=== PATIENT | female | born 1950 | race Caucasian/White ===

== ENCOUNTER 2017-01-02 12:16 | Inpatient (IN) | payer OTHER ==
[~2017-01-02] VITALS: Ht 165.1 cm; Wt 80.0 kg
[2017-01-02 14:08] LABS: CHLORIDE 95 mEq/L (99-109); POTASSIUM 4.1 mEq/L (3.7-5.4); SODIUM 132 mEq/L (136-147)
[2017-01-02 14:10] LABS: GLUCOSE 108 mg/dL (70-99)
[2017-01-02 14:11] LABS: ANION GAP 11 MEQ/L (2-14)
[2017-01-02 14:12] LABS: TOTAL BILIRUBIN 0.9 mg/dL (0.0-1.0)
[2017-01-02 14:13] LABS: TROP-I INTERPRETATION NEGATIVE; TROPONIN-I 0.01 ng/mL (0.0-0.30)
[2017-01-02 14:14] LABS: ALKALINE PHOSPHATASE 156 IU/L (3-129); GFR ESTIMATE (CALCULATED) > 59 mL/min/
[2017-01-02 14:15] LABS: UREA NITROGEN (BUN) 31 mg/dL (9-23)
[2017-01-02 14:26] LABS: BASE EXCESS 0.5 mEq/L (-3 to +3); BICARBONATE 31.4 mEq/L (22-26); CARBOXY HGB 2.2 % (0-5); METHEMOGLOBIN 0.9 % (0-1.5); PCO2 84 mm Hg (35-45); PO2 70 mm Hg (80-100)
[2017-01-02 14:27] LABS: COMMENTS - BLOOD GASES A+C+; DEVICE NC; O2 FLOW 4 L/MIN; SITE RR; TOTAL RESP RATE 16 resp/min; pH 7.18 (7.35-7.45)
[2017-01-02 14:28] LABS: HEMATOCRIT 41.6 % (36.0-46.0); MCH 28.3 PG (29.0-34.0); MCHC 31.3 G/DL (30.0-36.0); MCV 90.4 FL (83-99); MEAN PLAT.VOLUME 9.9 uM^3 (9.5-12.4); NRBC (%) 0.2 /100 WBC (0-0); PLATELET COUNT 225 K/uL (156-360); RBC DIS.WIDTH-CV 12.9 % (11.8-14.6); RBC DIS.WIDTH-SD 42.9 % (39-53)
[2017-01-02 15:15] LABS: ABS NEUTROPHIL COUNT 11.4; BAND NEUTROPHILS 22.4 % (0-8.0); EOSINOPHIL ABS CT 0; INSTRUMENT ABS NEUTROPHIL CT 11.2 K/uL; LYMPHOCYTES 5.2 % (15.0-45.0); METAMYELOCYTES 2.6 %; MYELOCYTES 0.9 %; SEG.NEUTROPHILS 65.5 % (46.0-76.0)
[2017-01-02 18:08] LABS: BASE EXCESS 0 mEq/L (-3 to +3); BICARBONATE 26.8 mEq/L (22-26); CARBOXY HGB 1.9 % (0-5); METHEMOGLOBIN 0.7 % (0-1.5); PO2 74 mm Hg (80-100)
[2017-01-02 18:09] LABS: COMMENTS - BLOOD GASES A+C+; DEVICE VENT; FI02 50 %; MECHANICAL RATE 16 resp/min; MODE A/C; PCO2 52 mm Hg (35-45); PEEP 5 CM/H20; SITE LR; TIDAL VOLUME 500 ML; TOTAL RESP RATE 16 resp/min; pH 7.32 (7.35-7.45)
[2017-01-02 18:13] LABS: ADD MIUA? YES; BILIRUBIN NEGATIVE; BLOOD MODERATE; COLOR YELLOW ((YELLOW)); GLUCOSE (STRIP) NEGATIVE; KETONES NEGATIVE; LEUKOCYTES MODERATE; NITRITE NEGATIVE; PROTEIN (STRIP) 100; SPECIFIC GRAVITY 1.015 (1.000-1.030)
[2017-01-02 18:23] LABS: BACTERIA 1+ /HPF; EPITHELIAL CELLS 1+ /HPF; HYALINE CASTS 15-20 /LPF; MUCUS TRACE /LPF; RED BLOOD CELLS 0-5 /HPF (0-5); UCUL ADDED? YES; WHITE BLOOD CELLS 20-30 /HPF (0-5)
[2017-01-02 20:00] VITALS: BP 121/69
[2017-01-02 21:00] VITALS: BP 102/63
[2017-01-02 21:19] VITALS: BP 101/60
[2017-01-02 22:00] VITALS: BP 91/53
[2017-01-02 22:25] LABS: METH RESISTANT S AUREUS PCR NEGATIVE (NEGATIVE)
[2017-01-02 22:41] LABS: PROBE CHECK PASS; SPECIMEN PROCESSING CONTROL PASS
[2017-01-02 23:00] VITALS: BP 90/56
[2017-01-03] VITALS (18 sets, daily range): BP systolic 83–140; BP diastolic 50–76
[2017-01-03 06:31] LABS: ANION GAP 9 MEQ/L (2-14); CHLORIDE 101 MEQ/L (99-109); GFR ESTIMATE (CALCULATED) > 59 mL/min/; POTASSIUM 3.5 MEQ/L (3.7-5.4); SAMPLE HEMOLYSIS CHECK 0; SAMPLE ICTERIC CHECK 0; SAMPLE LIPEMIA CHECK 0; SODIUM 137 MEQ/L (136-147); UREA NITROGEN (BUN) 30 mg/dL (9-23)
[2017-01-03 06:36] LABS: GLUCOSE 77 mg/dL (70-99)
[2017-01-03 14:40] LABS: MAGNESIUM 2.3 mg/dl (1.3-2.7)
[2017-01-04] VITALS (24 sets, daily range): BP systolic 90–177; BP diastolic 64–104
[2017-01-04 08:28] LABS: HEMATOCRIT 32.4 % (36.0-46.0); MCH 28.8 PG (29.0-34.0); MCHC 32.4 G/DL (30.0-36.0); MEAN PLAT.VOLUME 9.7 uM^3 (9.5-12.4); NRBC (%) 0.2 /100 WBC (0-0); PLATELET COUNT 195 K/uL (156-360); RBC DIS.WIDTH-CV 13.5 % (11.8-14.6); RBC DIS.WIDTH-SD 44.2 % (39-53); WHITE BLOOD COUNT 8.5 K/uL (4.1-10.2)
[2017-01-04 08:48] LABS: ALKALINE PHOSPHATASE 271 IU/L (3-129); ANION GAP 6 MEQ/L (2-14); CHLORIDE 104 MEQ/L (99-109); GFR ESTIMATE (CALCULATED) > 59 mL/min/; MAGNESIUM 2.1 mg/dl (1.3-2.7); POTASSIUM 3.5 MEQ/L (3.7-5.4); SAMPLE HEMOLYSIS CHECK 0; SAMPLE ICTERIC CHECK 0; SAMPLE LIPEMIA CHECK 0; SODIUM 141 MEQ/L (136-147); UREA NITROGEN (BUN) 12 mg/dL (9-23)
[2017-01-04 08:49] LABS: GLUCOSE 154 mg/dL (70-99)
[2017-01-04 09:08] LABS: ATYPICAL LYMPHOCYTE 2.6 %; EOSINOPHIL ABS CT 0.1; EOSINOPHILS 1.7 % (0-5.0); HEMATOLOGY COMMENT 1 SN; INSTRUMENT ABS NEUTROPHIL CT 5.6 K/uL; LYMPHOCYTES 11.3 % (15.0-45.0); METAMYELOCYTES 0.9 %; MYELOCYTES 0.9 %; PLAT.SUFFICIENCY ADEQUATE; SEG.NEUTROPHILS 80.9 % (46.0-76.0)
[2017-01-04 09:14] LABS: BAND NEUTROPHILS 0.9 % (0-8.0); RED BLOOD COUNT 3.64 M/uL (3.80-5.20)
[2017-01-05] VITALS (24 sets, daily range): BP systolic 106–195; BP diastolic 75–121
[2017-01-05 07:52] LABS: HEMATOCRIT 32.2 % (36.0-46.0); MCH 28.1 PG (29.0-34.0); MEAN PLAT.VOLUME 9.7 uM^3 (9.5-12.4); NRBC (%) 0.2 /100 WBC (0-0); PLATELET COUNT 210 K/uL (156-360); RBC DIS.WIDTH-CV 13.9 % (11.8-14.6); RBC DIS.WIDTH-SD 45.2 % (39-53); RED BLOOD COUNT 3.66 M/uL (3.80-5.20); WHITE BLOOD COUNT 8.3 K/uL (4.1-10.2)
[2017-01-05 08:19] LABS: ANION GAP 8 MEQ/L (2-14); CHLORIDE 106 MEQ/L (99-109); GFR ESTIMATE (CALCULATED) > 59 mL/min/; GLUCOSE 125 mg/dL (70-99); POTASSIUM 4.2 MEQ/L (3.7-5.4); SAMPLE HEMOLYSIS CHECK 0; SAMPLE ICTERIC CHECK 0; SAMPLE LIPEMIA CHECK 0; SODIUM 144 MEQ/L (136-147); UREA NITROGEN (BUN) 9 mg/dL (9-23)
[2017-01-05 08:28] LABS: BASE EXCESS 7.1 mEq/L (-3 to +3); BICARBONATE 31.3 mEq/L (22-26); CARBOXY HGB 1.3 % (0-5); METHEMOGLOBIN 1.6 % (0-1.5); PO2 65 mm Hg (80-100)
[2017-01-05 08:31] LABS: COMMENTS - BLOOD GASES A+C+; DEVICE 980; FI02 35 %; MECHANICAL RATE 14 resp/min; MODE AC; PCO2 42 mm Hg (35-45); PEEP 5 CM/H20; SITE LR; TIDAL VOLUME 500 ML; TOTAL RESP RATE 18 resp/min; pH 7.48 (7.35-7.45)
[2017-01-05 09:25] LABS: ABS NEUTROPHIL COUNT 5.2; EOSINOPHIL ABS CT 0.2; INSTRUMENT ABS NEUTROPHIL CT 5.2 K/uL; PLAT.SUFFICIENCY ADEQUATE
[2017-01-05 11:21] LABS: BASE EXCESS 6.9 mEq/L (-3 to +3); BICARBONATE 31.3 mEq/L (22-26); CARBOXY HGB 1.1 % (0-5); METHEMOGLOBIN 1.3 % (0-1.5); PCO2 43 mm Hg (35-45); PO2 79 mm Hg (80-100); SITE RR; pH 7.47 (7.35-7.45)
[2017-01-05 11:22] LABS: COMMENTS - BLOOD GASES A+C+; CONTINUOUS POS AIRWAY PRESSURE 5 cm H2O; DEVICE 980; FI02 35 %; MODE SPONT; PRES. SUPPORT 5 CM/H2O; TIDAL VOLUME 422 ML; TOTAL RESP RATE 19 resp/min
[2017-01-06] VITALS (21 sets, daily range): BP systolic 121–195; BP diastolic 78–123
[2017-01-06 04:57] LABS: HEMATOCRIT 33.2 % (36.0-46.0); MCH 28.3 PG (29.0-34.0); MCHC 32.2 G/DL (30.0-36.0); MCV 87.8 FL (83-99); MEAN PLAT.VOLUME 9.8 uM^3 (9.5-12.4); PLATELET COUNT 240 K/uL (156-360); RBC DIS.WIDTH-CV 13.9 % (11.8-14.6); RBC DIS.WIDTH-SD 44.9 % (39-53); RED BLOOD COUNT 3.78 M/uL (3.80-5.20); WHITE BLOOD COUNT 9.6 K/uL (4.1-10.2)
[2017-01-06 05:12] LABS: BASE EXCESS 5.5 mEq/L (-3 to +3); BICARBONATE 29.9 mEq/L (22-26); CARBOXY HGB 1.7 % (0-5); COMMENTS - BLOOD GASES C+A+; METHEMOGLOBIN 1.5 % (0-1.5); PCO2 42 mm Hg (35-45); PO2 75 mm Hg (80-100); SITE RR; pH 7.46 (7.35-7.45)
[2017-01-06 05:13] LABS: DEVICE VENTILATOR; FI02 35 %; MECHANICAL RATE 14 resp/min; MODE A/C; PEEP 5 CM/H20; TIDAL VOLUME 500 ML; TOTAL RESP RATE 16 resp/min
[2017-01-06 05:14] LABS: POTASSIUM 4.3 mEq/L (3.7-5.4); SODIUM 140 mEq/L (136-147)
[2017-01-06 05:16] LABS: GLUCOSE 135 mg/dL (70-99)
[2017-01-06 05:17] LABS: ANION GAP 8 MEQ/L (2-14)
[2017-01-06 05:20] LABS: GFR ESTIMATE (CALCULATED) > 59 mL/min/; UREA NITROGEN (BUN) 10 mg/dL (9-23)
[2017-01-06 05:25] LABS: CHLORIDE 106 mEq/L (99-109)
[2017-01-06 06:58] LABS: ABS NEUTROPHIL COUNT 6.6; BAND NEUTROPHILS 2.6 % (0-8.0); BASOPHILS 0.9 %; EOSINOPHIL ABS CT 0.3; EOSINOPHILS 3.5 % (0-5.0); LYMPHOCYTES 13.2 % (15.0-45.0); METAMYELOCYTES 2.6 %; PLAT.SUFFICIENCY ADEQUATE; SEG.NEUTROPHILS 65.8 % (46.0-76.0)
[2017-01-06 10:43] LABS: BICARBONATE 29.1 mEq/L (22-26); CARBOXY HGB 1.3 % (0-5); METHEMOGLOBIN 1.3 % (0-1.5); PCO2 40 mm Hg (35-45); PO2 67 mm Hg (80-100); pH 7.47 (7.35-7.45)
[2017-01-06 10:44] LABS: SITE RR
[2017-01-06 10:45] LABS: COMMENTS - BLOOD GASES A+C+; CONTINUOUS POS AIRWAY PRESSURE 5 cm H2O; DEVICE VENT; FI02 35 %; MODE SPONT; PRES. SUPPORT 10 CM/H2O; TOTAL RESP RATE 29 resp/min
[2017-01-07] VITALS (14 sets, daily range): BP systolic 141–184; BP diastolic 84–99
[2017-01-07 05:24] LABS: HEMATOCRIT 36.6 % (36.0-46.0); MCH 28.2 PG (29.0-34.0); MCHC 32.2 G/DL (30.0-36.0); MCV 87.6 FL (83-99); MEAN PLAT.VOLUME 9.7 uM^3 (9.5-12.4); PLATELET COUNT 306 K/uL (156-360); RBC DIS.WIDTH-CV 13.2 % (11.8-14.6); RBC DIS.WIDTH-SD 42.3 % (39-53); RED BLOOD COUNT 4.18 M/uL (3.80-5.20); WHITE BLOOD COUNT 10.8 K/uL (4.1-10.2)
[2017-01-07 06:10] LABS: ANION GAP 10 MEQ/L (2-14); CHLORIDE 106 MEQ/L (99-109); GFR ESTIMATE (CALCULATED) > 59 mL/min/; POTASSIUM 4.3 MEQ/L (3.7-5.4); SAMPLE HEMOLYSIS CHECK 0; SAMPLE ICTERIC CHECK 0; SAMPLE LIPEMIA CHECK 0; SODIUM 142 MEQ/L (136-147); UREA NITROGEN (BUN) 14 mg/dL (9-23)
[2017-01-07 06:11] LABS: GLUCOSE 93 mg/dL (70-99)
[2017-01-07 06:30] LABS: ABS NEUTROPHIL COUNT 8.3; BURR CELLS 1+; EOSINOPHIL ABS CT 0.4; EOSINOPHILS 3.6 % (0-5.0); HEMATOLOGY COMMENT 1 SN; HYPOCHROMASIA 1+; INSTRUMENT ABS NEUTROPHIL CT 7.2 K/uL; LYMPHOCYTES 12.6 % (15.0-45.0); PLAT.SUFFICIENCY ADEQUATE; SEG.NEUTROPHILS 76.6 % (46.0-76.0)
[2017-01-08 03:47] VITALS: BP 161/94
[2017-01-08 07:54] VITALS: BP 188/814
[2017-01-08 09:09] VITALS: BP 142/79
[2017-01-08 11:14] VITALS: BP 176/93
[2017-01-08 15:22] LABS: ADD MIUA? NO; BILIRUBIN NEGATIVE; BLOOD NEGATIVE; COLOR YELLOW ((YELLOW)); GLUCOSE (STRIP) NEGATIVE; KETONES NEGATIVE; LEUKOCYTES NEGATIVE; NITRITE NEGATIVE; PROTEIN (STRIP) NEGATIVE; SPECIFIC GRAVITY 1.013 (1.000-1.030); UCUL ADDED? NO; UROBILINOGEN 0.2 MG/DL (0.2-1.0)
[2017-01-08 16:30] VITALS: BP 211/102
[2017-01-09] VITALS: BP 177/101
[2017-01-09 00:41] VITALS: BP 162/98
[2017-01-09 06:31] LABS: BASOPHIL COUNT 0.1 K/uL (0-0.1); EOSINOPHIL COUNT 0.3 K/uL (0-0.3); HEMATOCRIT 40.8 % (36.0-46.0); IMMATURE GRANULOCYTE (%) 2.9 % (0.0-0.7); IMMATURE GRANULOCYTE COUNT 0.3 K/uL; INSTRUMENT ABS NEUTROPHIL CT 6.4 K/uL; LYMPHOCYTE COUNT 1.4 K/uL (1.0-2.8); MCH 27.6 PG (29.0-34.0); MCHC 32.6 G/DL (30.0-36.0); MCV 84.6 FL (83-99); MEAN PLAT.VOLUME 9.4 uM^3 (9.5-12.4); MONOCYTE (%) 8.1 % (3-12); MONOCYTE COUNT 0.7 K/uL (0-0.8); NEUTROPHIL (%) 70.3 % (45-76); NEUTROPHIL COUNT 6.4 K/uL (1.8-6.4); RBC DIS.WIDTH-CV 12.6 % (11.8-14.6); RBC DIS.WIDTH-SD 39.1 % (39-53); RED BLOOD COUNT 4.82 M/uL (3.80-5.20); WHITE BLOOD COUNT 9.1 K/uL (4.1-10.2)
[2017-01-09 06:32] LABS: PLATELET COUNT 477 K/uL (156-360)
[2017-01-09 07:13] LABS: ALKALINE PHOSPHATASE 234 IU/L (3-129); ANION GAP 11 MEQ/L (2-14); CHLORIDE 103 MEQ/L (99-109); GFR ESTIMATE (CALCULATED) > 59 mL/min/; GLUCOSE 97 mg/dL (70-99); POTASSIUM 4.1 MEQ/L (3.7-5.4); SAMPLE HEMOLYSIS CHECK 0; SAMPLE ICTERIC CHECK 0; SAMPLE LIPEMIA CHECK 0; SODIUM 138 MEQ/L (136-147); TOTAL BILIRUBIN 0.6 MG/DL (0.0-1.0); UREA NITROGEN (BUN) 11 mg/dL (9-23)
[2017-01-09 07:41] VITALS: BP 187/109
[2017-01-09 15:55] VITALS: BP 173/94
[2017-01-10] VITALS: BP 143/98
[2017-01-10 06:57] LABS: BASOPHIL COUNT 0.1 K/uL (0-0.1); EOSINOPHIL (%) 1.5 % (0-5); EOSINOPHIL COUNT 0.1 K/uL (0-0.3); HEMATOCRIT 40.5 % (36.0-46.0); IMMATURE GRANULOCYTE (%) 1.7 % (0.0-0.7); IMMATURE GRANULOCYTE COUNT 0.1 K/uL; INSTRUMENT ABS NEUTROPHIL CT 5.6 K/uL; LYMPHOCYTE COUNT 1.2 K/uL (1.0-2.8); MCH 27.5 PG (29.0-34.0); MCHC 32.6 G/DL (30.0-36.0); MCV 84.4 FL (83-99); MEAN PLAT.VOLUME 9.5 uM^3 (9.5-12.4); MONOCYTE (%) 8.9 % (3-12); MONOCYTE COUNT 0.7 K/uL (0-0.8); NEUTROPHIL COUNT 5.6 K/uL (1.8-6.4); PLATELET COUNT 533 K/uL (156-360); RBC DIS.WIDTH-CV 12.5 % (11.8-14.6); RBC DIS.WIDTH-SD 38.4 % (39-53); WHITE BLOOD COUNT 7.8 K/uL (4.1-10.2)
[2017-01-10 07:25] VITALS: BP 191/96
[2017-01-10 07:25] LABS: ALKALINE PHOSPHATASE 212 IU/L (3-129); ANION GAP 10 MEQ/L (2-14); CHLORIDE 101 MEQ/L (99-109); GFR ESTIMATE (CALCULATED) > 59 mL/min/; GLUCOSE 101 mg/dL (70-99); POTASSIUM 3.8 MEQ/L (3.7-5.4); SAMPLE HEMOLYSIS CHECK 0; SAMPLE ICTERIC CHECK 0; SAMPLE LIPEMIA CHECK 0; SODIUM 137 MEQ/L (136-147); TOTAL BILIRUBIN 0.5 MG/DL (0.0-1.0); UREA NITROGEN (BUN) 10 mg/dL (9-23)
[2017-01-10 16:10] VITALS: BP 125/81
[2017-01-10 23:43] VITALS: BP 132/73
[2017-01-11 04:03] VITALS: BP 113/66
[2017-01-11 06:38] LABS: BASOPHIL COUNT 0.1 K/uL (0-0.1); EOSINOPHIL (%) 2.5 % (0-5); EOSINOPHIL COUNT 0.2 K/uL (0-0.3); HEMATOCRIT 40.4 % (36.0-46.0); IMMATURE GRANULOCYTE (%) 0.9 % (0.0-0.7); IMMATURE GRANULOCYTE COUNT 0.1 K/uL; INSTRUMENT ABS NEUTROPHIL CT 5.4 K/uL; LYMPHOCYTE COUNT 1.4 K/uL (1.0-2.8); MCH 27.5 PG (29.0-34.0); MCHC 32.2 G/DL (30.0-36.0); MCV 85.6 FL (83-99); MEAN PLAT.VOLUME 9.2 uM^3 (9.5-12.4); MONOCYTE (%) 8.8 % (3-12); MONOCYTE COUNT 0.7 K/uL (0-0.8); NEUTROPHIL (%) 68.5 % (45-76); NEUTROPHIL COUNT 5.4 K/uL (1.8-6.4); PLATELET COUNT 545 K/uL (156-360); RBC DIS.WIDTH-CV 12.5 % (11.8-14.6); RBC DIS.WIDTH-SD 38.8 % (39-53); RED BLOOD COUNT 4.72 M/uL (3.80-5.20); WHITE BLOOD COUNT 7.9 K/uL (4.1-10.2)
[2017-01-11 06:55] LABS: ANION GAP 11 MEQ/L (2-14); CHLORIDE 102 MEQ/L (99-109); GFR ESTIMATE (CALCULATED) > 59 mL/min/; GLUCOSE 92 mg/dL (70-99); POTASSIUM 3.5 MEQ/L (3.7-5.4); SAMPLE HEMOLYSIS CHECK 0; SAMPLE ICTERIC CHECK 0; SAMPLE LIPEMIA CHECK 0; SODIUM 137 MEQ/L (136-147); UREA NITROGEN (BUN) 11 mg/dL (9-23)
[2017-01-11 07:51] VITALS: BP 148/92
[2017-01-11 16:00] VITALS: BP 136/83
[2017-01-11 23:31] VITALS: BP 149/87
[2017-01-12 06:08] LABS: BASOPHIL COUNT 0.1 K/uL (0-0.1); EOSINOPHIL (%) 2.5 % (0-5); EOSINOPHIL COUNT 0.2 K/uL (0-0.3); IMMATURE GRANULOCYTE (%) 0.7 % (0.0-0.7); IMMATURE GRANULOCYTE COUNT 0.1 K/uL; INSTRUMENT ABS NEUTROPHIL CT 4.1 K/uL; LYMPHOCYTE COUNT 1.8 K/uL (1.0-2.8); MCH 27.5 PG (29.0-34.0); MCHC 32.3 G/DL (30.0-36.0); MCV 85.2 FL (83-99); MEAN PLAT.VOLUME 9.3 uM^3 (9.5-12.4); MONOCYTE (%) 9.3 % (3-12); MONOCYTE COUNT 0.6 K/uL (0-0.8); NEUTROPHIL (%) 59.5 % (45-76); NEUTROPHIL COUNT 4.1 K/uL (1.8-6.4); PLATELET COUNT 604 K/uL (156-360); RBC DIS.WIDTH-CV 12.7 % (11.8-14.6); RBC DIS.WIDTH-SD 38.8 % (39-53); RED BLOOD COUNT 4.58 M/uL (3.80-5.20); WHITE BLOOD COUNT 6.9 K/uL (4.1-10.2)
[2017-01-12 06:34] LABS: ALKALINE PHOSPHATASE 166 IU/L (3-129); ANION GAP 8 MEQ/L (2-14); CHLORIDE 103 MEQ/L (99-109); GFR ESTIMATE (CALCULATED) > 59 mL/min/; GLUCOSE 96 mg/dL (70-99); SAMPLE HEMOLYSIS CHECK 0; SAMPLE ICTERIC CHECK 0; SAMPLE LIPEMIA CHECK 0; SODIUM 138 MEQ/L (136-147); TOTAL BILIRUBIN 0.6 MG/DL (0.0-1.0); UREA NITROGEN (BUN) 10 mg/dL (9-23)
[2017-01-12 08:00] VITALS: BP 186/102
[2017-01-12 16:00] VITALS: BP 134/75
[2017-01-12 16:50] LABS: C DIFF TOXIN NEGATIVE (NEGATIVE)
[2017-01-12 16:51] LABS: PROBE CHECK PASS; SPECIMEN PROCESSING CONTROL PASS
[2017-01-12 23:53] VITALS: BP 106/71
[2017-01-13 07:07] LABS: BASOPHIL COUNT 0.1 K/uL (0-0.1); EOSINOPHIL (%) 2.1 % (0-5); EOSINOPHIL COUNT 0.2 K/uL (0-0.3); HEMATOCRIT 39.8 % (36.0-46.0); IMMATURE GRANULOCYTE (%) 0.7 % (0.0-0.7); IMMATURE GRANULOCYTE COUNT 0.1 K/uL; INSTRUMENT ABS NEUTROPHIL CT 4.4 K/uL; LYMPHOCYTE COUNT 1.8 K/uL (1.0-2.8); MCH 28.1 PG (29.0-34.0); MCHC 32.9 G/DL (30.0-36.0); MCV 85.4 FL (83-99); MEAN PLAT.VOLUME 9.5 uM^3 (9.5-12.4); MONOCYTE COUNT 0.6 K/uL (0-0.8); NEUTROPHIL (%) 61.4 % (45-76); NEUTROPHIL COUNT 4.4 K/uL (1.8-6.4); PLATELET COUNT 613 K/uL (156-360); RBC DIS.WIDTH-CV 12.9 % (11.8-14.6); RBC DIS.WIDTH-SD 39.8 % (39-53); RED BLOOD COUNT 4.66 M/uL (3.80-5.20); WHITE BLOOD COUNT 7.1 K/uL (4.1-10.2)
[2017-01-13 07:29] LABS: ALKALINE PHOSPHATASE 149 IU/L (3-129); ANION GAP 10 MEQ/L (2-14); CHLORIDE 104 MEQ/L (99-109); GFR ESTIMATE (CALCULATED) > 59 mL/min/; GLUCOSE 94 mg/dL (70-99); POTASSIUM 3.9 MEQ/L (3.7-5.4); SAMPLE HEMOLYSIS CHECK 0; SAMPLE ICTERIC CHECK 0; SAMPLE LIPEMIA CHECK 0; SODIUM 138 MEQ/L (136-147); TOTAL BILIRUBIN 0.5 MG/DL (0.0-1.0); UREA NITROGEN (BUN) 8 mg/dL (9-23)
[2017-01-13 07:37] VITALS: BP 170/94
[2017-01-13 16:44] VITALS: BP 125/63
[2017-01-13 23:27] VITALS: BP 94/58
[2017-01-14 07:16] LABS: BASOPHIL COUNT 0.1 K/uL (0-0.1); EOSINOPHIL (%) 2.7 % (0-5); EOSINOPHIL COUNT 0.2 K/uL (0-0.3); HEMATOCRIT 38.6 % (36.0-46.0); IMMATURE GRANULOCYTE (%) 0.3 % (0.0-0.7); INSTRUMENT ABS NEUTROPHIL CT 4.5 K/uL; LYMPHOCYTE COUNT 2.2 K/uL (1.0-2.8); MCH 27.7 PG (29.0-34.0); MCHC 32.4 G/DL (30.0-36.0); MCV 85.6 FL (83-99); MEAN PLAT.VOLUME 9.3 uM^3 (9.5-12.4); MONOCYTE (%) 8.2 % (3-12); MONOCYTE COUNT 0.6 K/uL (0-0.8); NEUTROPHIL (%) 58.8 % (45-76); NEUTROPHIL COUNT 4.5 K/uL (1.8-6.4); PLATELET COUNT 699 K/uL (156-360); RBC DIS.WIDTH-CV 12.9 % (11.8-14.6); RBC DIS.WIDTH-SD 40.1 % (39-53); RED BLOOD COUNT 4.51 M/uL (3.80-5.20); WHITE BLOOD COUNT 7.7 K/uL (4.1-10.2)
[2017-01-14 08:03] LABS: ANION GAP 9 MEQ/L (2-14); CHLORIDE 104 MEQ/L (99-109); GFR ESTIMATE (CALCULATED) > 59 mL/min/; GLUCOSE 99 mg/dL (70-99); POTASSIUM 3.9 MEQ/L (3.7-5.4); SAMPLE HEMOLYSIS CHECK 0; SAMPLE ICTERIC CHECK 0; SAMPLE LIPEMIA CHECK 0; SODIUM 140 MEQ/L (136-147); UREA NITROGEN (BUN) 8 mg/dL (9-23)
[2017-01-14 08:13] VITALS: BP 130/61
[2017-01-14] MEDS ORDERED: CLONIDINE HCL0.1 MG PO (10:21)
[2017-01-14] MEDS ORDERED: AMOX TR-K CLV1 EAC4 PO (10:21)
[2017-01-14] MEDS ORDERED: PANTOPRAZOLE SO40 MG PO (10:21)
[2017-01-14] MEDS ORDERED: ALPRAZOLAM0.25 M2 PO (10:21)
[2017-01-14] MEDS ORDERED: LOSARTAN POTASS50 MG PO (10:21)
== END 2017-01-14 13:16 | disposition home or self-care (01) | DRG 208 ==
LOC: EME 12:16 → 4WEST 18:12 → EDOF 18:12 → ENRESERV 18:16 → 4WEST 20:08 → ENRESERV 01-07 06:41 → 5SOUTH 01-07 09:22
PROVIDERS: Emergency Medicine; Hospitalist; Internal Medicine; Internal Medicine Critical Care Medicine; Surgery
DX: J96.01 Acute respiratory failure with hypoxia (principal); J13 Pneumonia due to Streptococcus pneumoniae; J96.02 Acute respiratory failure with hypercapnia; N39.0 Urinary tract infection, site not specified; E87.2 Acidosis; Z87.891 Personal history of nicotine dependence; E87.1 Hypo-osmolality and hyponatremia; I49.3 Ventricular premature depolarization; E86.1 Hypovolemia; E87.6 Hypokalemia; E83.39 Other disorders of phosphorus metabolism; I49.1 Atrial premature depolarization; I10 Essential (primary) hypertension; R33.9 Retention of urine, unspecified
CPT/HCPCS: 36600; 70450; 71010; 71275; 74177; 80048; 80053; 81003; 82803; 83605; 83735; 84100; 84484; 85025; 85379; 87040; 87070; 87077; 87086; 87181; 87185; 87186; 87205; 87493; 87641; 87801; 90686; 93005; 94002; 94003; 94640; 94640 76; 94760; 94799; 99202; 99281; 99285; J0330; J0456; J0696; J1650; J2060; J2405; J2543; J2704; J2765; J3010; J3475; J7030; J7040; J7050

== ENCOUNTER → 2017-03-25 | Day surgery (SDC) | payer OTHER ==
[~2017-03-25] VITALS: Ht 152.4 cm; Wt 69.4 kg
[~2017-03-25] MED LIST: ALPRAZOLAM0.25 M2 PO; AMOX TR-K CLV1 EAC4 PO; CLONIDINE HCL0.1 MG PO; LOSARTAN POTASS50 MG PO; PANTOPRAZOLE SO40 MG PO
[2017-03-25 19:13] LABS: HEMATOCRIT 41.8 % (36.0-46.0); HEMOGLOBIN 13.5 G/DL (11.9-15.5); MCH 28.6 PG (29.0-34.0); MCHC 32.3 G/DL (30.0-36.0); MCV 88.6 FL (83-99); PLATELET COUNT 241 K/uL (156-360); RBC DIS.WIDTH-CV 13.6 % (11.8-14.6); RBC DIS.WIDTH-SD 44.3 % (39-53); RED BLOOD COUNT 4.72 M/uL (3.80-5.20)
[2017-03-25 19:22] LABS: PTT 26.2 SEC (25-37)
[2017-03-25 20:08] VITALS: BP 185/95
== END | disposition home or self-care (01) ==
LOC: EME 14:39 → SDC 20:12
PROVIDERS: Physician Assistant Medical
PROC: 0DC38ZZ Extirpation of Matter from Lower Esophagus, Via Natural or Artificial Opening Endoscopic (ICD-10-PCS; principal; 2017-03-25)
DX: T18.128A Food in esophagus causing other injury, initial encounter (principal); K08.109 Complete loss of teeth, unspecified cause, unspecified class; M54.9 Dorsalgia, unspecified; R11.0 Nausea; I10 Essential (primary) hypertension; J44.9 Chronic obstructive pulmonary disease, unspecified; Z87.891 Personal history of nicotine dependence; Z90.710 Acquired absence of both cervix and uterus
CPT/HCPCS: 70360; 85027; 85610; 85730; 93005; 99281; 99284; C1874; J0330; J0360; J2405